=== PATIENT | female | born 1975 | race Caucasian/White ===

== ENCOUNTER → 2021-10-02 | Outpatient (CLI) | payer MEDICAID ==
[2021-10-02 10:19] VITALS: BP 143/91; PULSE 86; RESP 17; TEMP 97.9
--- NOTE | 2021-10-02 11:35 | P.HPOB ---
History of Present Illness H&P Date: 10/02/21 Chief Complaint: The patient is here for her routine gynecologic exam. This is a 45-year-old 012 with an LMP of 09/17/2021. The patient is here to establish with this office. It has been about 3 years since her last pelvic exam. She has a Kyleena IUD in place since September 2017. This IUD is a 5 year IUD. She states she is doing well with it, but does have some moodiness around the time of her menstrual period. Menstrual periods are light every 1-2 months with the IUD. She has been experiencing slight stress urinary incontinence with coughing or sneezing. She does wear a pad because of this. She denies urge incontinence. Review of Systems The patient has gained 10 pounds over the last year. She denies respiratory, cardiac, or G.I. problems. Past Medical History Past Medical History: Asthma Additional Past Medical History / Comment(s): MIGRAINES. Seasonal ALLERGIES. Kidney stones. 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 History of Any Multi-Drug Resistant Organisms: None Reported Past Surgical History: No Surgical Hx Reported Additional Past Surgical History / Comment(s): Colonoscopy 2019(next after 5yr). Past Anesthesia/Blood Transfusion Reactions: No Reported Reaction Past Psychological History: No Psychological Hx Reported (She denies current depression.) Smoking Status: Never smoker Past Alcohol Use History: Occasional (0-2 per month) Past Drug Use History: None Reported Additional History: She is single and has not been seen anybody since 2018. 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 - Past Family History Mother Family Medical History: Hyperlipidemia, Hypertension Additional Family Medical History / Comment(s): Colon polyps. Maternal grandmother had breast cancer. Maternal uncle had colon cancer. Father Family Medical History: Hyperlipidemia, Liver Disease, Sleep Apnea/CPAP/BIPAP Additional Family Medical History / Comment(s): Paternal aunt had some type of gynecologic cancer. Medications and Allergies Home Medications and Allergies Comment(s): Albuterol inhaler as needed. Home Medications Medication Instructions Recorded Confirmed Type Fexofenadine/Pseudoephedrine 1 tab PO DAILY 10/02/21 10/02/21 History [Estelle-D 24 Hour Tablet] SUMAtriptan SUCCINATE [Imitrex] 50 mg PO DIRECTED PRN 10/02/21 10/02/21 History clonazePAM [KlonoPIN] 0.5 mg PO DIRECTED PRN 10/02/21 10/02/21 History Allergies Allergy/AdvReac Type Severity Reaction Status Date / Time bee venom protein (honey bee) Allergy Swelling Unverified 10/02/21 10:00 Exam Vital Signs Temp Pulse Resp BP Pulse Ox 10/02/21 10:05 97.9 F 86 17 143/91 97 Intake and Output 10/01/21 10/02/21 10/02/21 22:59 06:59 14:59 Other: Weight 77.564 kg Height 5 foot 1 inch, weight 171 pounds, BMI 32.3. This is a well-developed well-nourished white female who is alert and oriented times 3 in no acute distress. HEENT: Within normal limits. NECK: Supple without mass or thyromegaly. CHEST AND LUNGS: Clear to auscultation. HEART: Regular rate and rhythm. BREASTS: Are without mass or discharge. AXILLARY EXAM: Negative for adenopathy. BACK: Negative for CVA tenderness. ABDOMEN: Soft, nontender, without palpable masses. PELVIC EXAM: Normal external genitalia. Cervix and vagina appear normal. The IUD string protrudes from the cervix by about 1 cm. The cervix is slightly friable upon doing the Pap smear. There is no unusual discharge. There is no evidence of prolapse. With cough and Valsalva there is mild urethral mobility with no urinary leakage demonstrated. The uterus is midposition, nongravid size and nontender. There are no palpable adnexal masses or tenderness. RECTAL EXAM: negative for mass or tenderness and is negative for occult blood. There is good sphincter tone. EXTREMITIES: Nontender. IMPRESSION: 1. 45-year-old female with a Kyleena IUD in place, with normal gynecologic exam. 2. Mild stress urinary incontinence with mild urethral mobility with cough and Valsalva. 3. Mildly elevated blood pressure. PLAN: 1. Pap smear cotest was performed. 2. Self breast awareness was discussed with the patient. We have also discussed symptoms associated with inflammatory breast cancer. 3. Baseline screening mammogram was recommended in the order slip was given to the patient for this. 4. The patient is interested in STD screening. GC and Chlamydia testing was obtained from the cervix. Blood STD testing will include HIV, RPR, hepatitis B surface antigen, and hepatitis C antibody. The order slip was given to the patient for this. 5. We have discussed stress urinary incontinence. I have recommended regular kegal exercises, timed voids and trying to empty her bladder as completely as possible, by relaxing and giving herself more time to void. Instructions on these activities was given to the patient. Consider referral if incontinence problems are worsening or becoming more of a problem. 6. The patient currently does not have a PCP in the [facility] and is requesting a prescription for her migraine headache medications. She states she takes them infrequently. The Imitrex prescription will be renewed and the electronic prescription will be sent to [facility] at [employer] [employer]. 7. We have discussed her elevated blood pressure. She states she can check her blood pressure on a regular basis at work. She will follow up with her PCP for blood pressure elevations. 8. She was advised to return in one year for her annual well woman exam. She will also consider control options when her IUD should be removed or replaced in one year.
[2021-10-02 18:46] LABS: Hepatitis B Surface Antigen Nonreactive (Nonreactive); Hepatitis C IgG Antibody Nonreactive (Nonreactive)
[2021-10-03 14:21] LABS: C. trachomatis,PCR Negative (Neg,Equiv); Chlamydia trachomatis Source Cervix; N. gonorrhoeae,PCR Negative (Neg,Equiv); Neisseria Source Cervix
== END | disposition home or self-care (01) ==
LOC: WWCWWP 09:50
PROVIDERS: ATTEND Obstetrics & Gynecology
DX: Z11.3 Encounter for screening for infections with a predominantly sexual mode of transmission (principal)
CPT/HCPCS: 86780; 86803; 87340; 87390; 87491; 87591

== ENCOUNTER → 2021-10-24 | Outpatient (CLI) | payer MEDICAID ==
--- NOTE | 2021-10-25 07:59 | MM ---
Reason for Exam: Screening (asymptomatic). Baseline mammogram. Patient History: Menarche at age 14. First Full-Term at age 30. Currently using Hormonal Contraceptives, starting at age 18. Maternal grandmother had breast cancer. Paternal aunt had ovarian cancer. Last menstrual period: 10/10/2021 Risk Values: Julia 5 year model risk: 0.9%. NCI Lifetime model risk: 10.7%. Prior Study Comparison: Patient's first Mammogram. No prior studies available for comparison. Tissue Density: The breast tissue is heterogeneously dense. This may lower the sensitivity of mammography. Findings: Analyzed By CAD. There is no suspicious group of microcalcifications or new suspicious mass in either breast. Overall Assessment: Negative, BI-RAD 1 Management: Screening Mammogram of both breasts in 1 year. A clinical breast exam by your physician is recommended on an annual basis and results should be correlated with mammographic findings. Electronically signed and approved by: Raleigh Zamorano M.D. Radiologis
== END | disposition home or self-care (01) ==
LOC: RADMAMWWP 06:57
PROVIDERS: ATTEND Obstetrics & Gynecology
DX: Z12.31 Encounter for screening mammogram for malignant neoplasm of breast (principal)
CPT/HCPCS: 77063; 77067